=== PATIENT | female | born 1970 ===

== ENCOUNTER 2017-07-03 16:19 | Inpatient (IN) | payer MEDICAID ==
[2017-07-03] MEDS ORDERED: Sodium Chloride 0.9% 1,000 ML IV STA (16:46)
--- NOTE | 2017-07-03 16:50 | C.PDOC ---
History Of Present Illness <Cleve Davis - Last Filed: 07/05/17 15:44> <Jaclyn Martínez - Last Filed: 07/08/17 15:51> 47 y/o F c PMHx kidney stone, s/p whipple p/w R flank pain x 3 weeks associated with urinary pressure. She states [place] the [place] hospitalized for 4 days about 2 weeks ago and was found to have hydronephrosis and was also on antibiotics. She reports fever initially. (Cleve Davis Gerber) <Cleve Davis - Last Filed: 07/05/17 15:44> <Jaclyn Martínez - Last Filed: 07/08/17 15:51> Time Seen by Provider: 07/03/17 16:35 Chief Complaint (Nursing): Female Genitourinary Past Medical History - Medical History PMH: Hypercholesterolemia, Kidney Stones Family History: States: No Known Family Hx - Social History Hx Alcohol Use: No Hx Substance Use: No - Immunization History Hx Tetanus Toxoid Vaccination: Yes Hx Influenza Vaccination: No Hx Pneumococcal Vaccination: No <Cleve Davis - Last Filed: 07/05/17 15:44> Review Of Systems Except As Marked, All Systems Reviewed And Found Negative. Cardiovascular: Negative for: Chest Pain Respiratory: Negative for: Shortness of Breath <Cleve Davis - Last Filed: 07/05/17 15:44> Physical Exam <Cleve Davis - Last Filed: 07/05/17 15:44> <Jaclyn Martínez - Last Filed: 07/08/17 15:51> - Physical Exam Additional Physical Exam Comments: Constitutional: No acute distress. Head: Normocephalic. Atraumatic. Eyes: PERRL. ENT: Moist mucous membranes. Neck: Supple. Cardiovascular: Regular rate. Radial pulses 2+ bilaterally. Chest: No tenderness. Respiratory: Clear to auscultation bilaterally. GI: Soft. Nontender. Nondistended. Old surgical scars. Back: R CVA tenderness. Musculoskeletal: No tenderness or swelling of extremities. Skin: No rash. Neurologic: Alert, no focal deficit. (Cleve Davis) ED Course And Treatment - Laboratory Results Result Diagrams: 07/05/17 06:16 07/05/17 06:16 O2 Sat by Pulse Oximetry: 100 <Cleve Davis - Last Filed: 07/05/17 15:44> - Laboratory Results Result Diagrams: 07/06/17 06:52 07/06/17 06:52 <Jaclyn Martínez - Last Filed: 07/08/17 15:51> Medical Decision Making <Cleve Davis - Last Filed: 07/05/17 15:44> <Jaclyn Martínez - Last Filed: 07/08/17 15:51> Medical Decision Making: Check labs, urine, CT, treat with IVF, zofran, toradol. UA shows UTI. Cipro administered. Otherwise, labs unremarkable. Pending CT. Will sign out case to ER night team at change of shift. (Cleve Davis) Disposition - Disposition Disposition Time: 19:00 <Cleve Davis - Last Filed: 07/05/17 15:44> - Disposition Disposition Time: 19:48 <Jaclyn Martínez - Last Filed: 07/08/17 15:51> - Disposition Disposition: HOSPITALIZED Condition: FAIR - Clinical Impression Clinical Impression: Flank pain, Hydronephrosis, UTI (urinary tract infection) Addendum <Cleve Davis - Last Filed: 07/05/17 15:44> <Jaclyn Martínez - Last Filed: 07/08/17 15:51> Addendum: 07/03/17 19:48 Patient currently resting comfortably after IV pain medications. CT scan shows 10x7mm right sided stone at UVJ (right) with moderate to severe hydronephrosis. Patient has had intermittent right sided pain for > 2 weeks, was diagnosed with kidney stone/UTI (is s/p antibiotics) and told she needed surgery. Patient states she preferred to come back to [place] for treatment. Discussed patient with Dr. Gloria yAala, who would like patient admitted to hospitalist service with him for urology. Name: ANANDA EDMOND Age: 47Years F Date: 07/03/2017 SSN: [id number] : 1970 Study: CT ABDOMEN/PELVIS WO Requesting Physician: Cleve Davis Images: [id number] Addl Studies: Provided Clinical History: R flank pain CONFIDENTIALITY STATEMENT This transmission is confidential and is intended to be a privileged communication. It is intended only for the use of the addressee. Access to this message by anyone else is unauthorized. If you are not the intended recipient, any disclosure, copying, distribution or any action taken, or omitted to be taken in reliance on it is prohibited and may be unlawful. If you received this communication in error, please notify us by telephone, so that return of this document to us can be arranged. Page 1 of 3 EXAM: CT Abdomen and Pelvis Without Intravenous Contrast EXAM DATE/TIME: 07/03/2017 4:46 PM CLINICAL HISTORY: 47 years old, female; Pain; Abdominal pain; Flank; Right; Additional info: R flank pain TECHNIQUE: Axial computed tomography images of the abdomen and pelvis without intravenous contrast. All CT scans at this facility use one or more dose reduction techniques, viz.: automated exposure control; ma/kV adjustment per patient size (including targeted exams where dose is matched to indication; i.e. head); or iterative reconstruction technique. Coronal and sagittal reformatted images were created and reviewed. COMPARISON: No relevant prior studies available. FINDINGS: LIMITATIONS: Exam is limited by a generalized absence of intraabdominal and intrapelvic fat. LOWER THORAX: No infiltrate seen in the lung bases. ABDOMEN: LIVER: Air in the intrahepatic bile ducts. See below. GALLBLADDER AND BILE DUCTS: Air in the biliary tree/pneumobilia. This may be postsurgical in etiology, such as from a previous sphincterotomy. Recommend correlation with surgical history and the clinical presentation. Gallbladder is not seen, and is likely surgically absent. [facility] Final Radiology Report [id number] Name: ANANDA EDMOND Age: 47Years F Date: 07/03/2017 SSN: [id number] : 1970 Study: CT ABDOMEN/PELVIS WO Requesting Physician: Cleve Davis Images: 564 Addl Studies: Provided Clinical History: R flank pain CONFIDENTIALITY STATEMENT This transmission is confidential and is intended to be a privileged communication. It is intended only for the use of the addressee. Access to this message by anyone else is unauthorized. If you are not the intended recipient, any disclosure, copying, distribution or any action taken, or omitted to be taken in reliance on it is prohibited and may be unlawful. If you received this communication in error, please notify us by telephone, so that return of this document to us can be arranged. Page 2 of 3 PANCREAS: Pancreas is atrophic and therefore poorly evaluated the. Subtle fluid density areas seen in the pancreas, which could be due to a dilated pancreatic duct, however, recommend followup nonemergent pancreatic protocol CT or MRI to exclude cystic or other pancreatic masses. SPLEEN: No acute abnormality of the spleen identified. ADRENALS: No acute abnormality of the adrenal glands identified. KIDNEYS AND URETERS: 10 x 7 mm obstructing stone at the right UVJ/ ureterovesicular junction. This is best seen on image 142, and is causing moderate to severe right hydroureteronephrosis. There is also a right renal enlargement and right perinephric stranding. Nonobstructing stones in the lower pole of the right kidney. STOMACH AND BOWEL: Retained stool noted throughout the colon. Bowel is otherwise unremarkable in appearance. No evidence of bowel obstruction. APPENDIX: Normal appendix is probably seen, extending medially from the cecum, image 44/601. No significant pericecal inflammatory changes are noted to suggest appendicitis. Recommend clinical correlation. PELVIS: BLADDER: No acute abnormality of the bladder identified. REPRODUCTIVE: Bilateral tubal ligation clips. No acute abnormality of the uterus identified. No evidence of large adnexal masses. ABDOMEN and PELVIS: INTRAPERITONEAL SPACE: No evidence of free intraperitoneal air or fluid. BONES/JOINTS: No acute fractures or other acute bony abnormality noted. SOFT TISSUES: No acute abnormality of the visualized soft tissues is seen. VASCULATURE: No evidence of abdominal aortic aneurysm. No evidence of periaortic hemorrhage. LYMPH NODES: No evidence of diffuse lymphadenopathy. [facility] Final Radiology Report [id number] Name: ANANDA EDMOND Age: 47Years F Date: 07/03/2017 SSN: [id number] : 1970 Study: CT ABDOMEN/PELVIS WO Requesting Physician: Cleve Davis Images: 564 Addl Studies: Provided Clinical History: R flank pain CONFIDENTIALITY STATEMENT This transmission is confidential and is intended to be a privileged communication. It is intended only for the use of the addressee. Access to this message by anyone else is unauthorized. If you are not the intended recipient, any disclosure, copying, distribution or any action taken, or omitted to be taken in reliance on it is prohibited and may be unlawful. If you received this communication in error, please notify us by telephone, so that return of this document to us can be arranged. Page 3 of 3 IMPRESSION: - Large 10 x 7 mm obstructing stone at the right UVJ/ureterovesicular junction, causing moderate to severe right hydronephrosis. - Otherwise, no evidence of significant acute process. - Fluid density areas in the pancreas, which could be due to a dilated pancreatic duct, however, recommend followup nonemergent pancreatic protocol CT or MRI to exclude cystic or other pancreatic masses. - Pneumobilia, which may be postoperative in etiology. - See above for remaining findings. Thank you for allowing us to participate in the care of your patient. Dictated and Authenticated by: Kylah Nuñez MD 07/03/2017 7:12 PM Eastern Time ([place] & [place]) 07/03/17 20:[address] Wilder who agrees with admission to hospitalist service with Rosa Ayala for urology. (Jaclyn Martínez) Decision To Admit <Cleve Davis - Last Filed: 07/05/17 15:44> - Pt Status Changed To: Hospital Disposition Of: Inpatient - Admit Certification Admit to Inpatient:: After my assessment, the patient will require hospitalization for at least two midnights. This is because of the severity of symptoms shown, intensity of services needed, and/or the medical risk in this patient being treated as an outpatient. - InPatient: Physician Admission Certification: I certify that this patient requires 2 or more midnights of care for the following reason:: see notes - . Bed Request Type: Regular Admitting Physician: Ajay Wilder <Jaclyn Martínez - Last Filed: 07/08/17 15:51> - . Patient Diagnosis: Flank pain, Nephrolithiasis, Hydronephrosis, UTI (urinary tract infection)
[2017-07-03] MEDS ORDERED: Sodium Chloride 0.9% 1,000 ML ONE ×2 (16:57→20:46)
[2017-07-03 17:01] LABS: BASO # 0.1 K/uL (0.0-0.2); BASO % 0.6 % (0.0-2.0); EOS # 0.2 K/uL (0.0-0.7); EOS % 1.7 % (0.0-4.0); HEMATOCRIT 32.1 % (34.0-47.0); LYMPH # 2.1 K/uL (1.0-4.3); LYMPH % 23.1 % (20.0-40.0); MEAN CELL VOLUME 87.6 fL (81.0-99.0); MEAN CORPUSCULAR HEMOGLOBIN 30.8 pg (27.0-31.0); MEAN CORPUSCULAR HGB CONC 35.1 g/dL (33.0-37.0); MONO % 10.6 % (0.0-10.0); RED CELL DISTRIBUTION WIDTH 12.9 % (11.5-14.5); WHITE BLOOD COUNT 9.2 K/uL (4.8-10.8)
[2017-07-03 17:08] LABS: CHLORIDE 98 mmol/L (98-107)
[2017-07-03 17:09] LABS: POTASSIUM 3.8 mmol/L (3.6-5.2); SODIUM 140 mmol/L (132-148)
[2017-07-03 17:11] LABS: GFR AFRICAN-AMERICAN > 60
[2017-07-03 17:12] LABS: ALB/GLOB RATIO 0.8 (1.0-2.1); ALKALINE PHOSPHATASE 82 U/L (38-126); ALT/SGPT 20 U/L (9-52); AST/SGOT 16 U/L (14-36); BILIRUBIN,TOTAL 0.4 mg/dL (0.2-1.3); BLOOD UREA NITROGEN 13 mg/dL (7-17); CALCIUM 9.2 mg/dl (8.6-10.4); CARBON DIOXIDE 28 mmol/L (22-30); GLUCOSE,RANDOM 193 mg/dL (65-105)
[2017-07-03 17:15] LABS: RBC URINE 4 /hpf (0-3); URINE BACTERIA RARE (<OCC); URINE BILIRUBIN NEGATIVE (NEGATIVE); URINE BLOOD NEGATIVE (NEGATIVE); URINE COLOR Yellow (YELLOW); URINE GLUCOSE (UA) NORMAL (Normal); URINE KETONE NEGATIVE (NEGATIVE); URINE LEUKOCYTE ESTERASE 1+ Leu/uL (Negative); URINE PROTEIN NEGATIVE (NEGATIVE); URINE UROBILINOGEN NORMAL mg/dL (0.2-1.0); WBC URINE 14 /hpf (0-5)
[2017-07-03] MEDS ORDERED: Ciprofloxacin 400mg/200ml D5W 400 MG/200 ML BAG IVPB STA (18:40)
[2017-07-03] MEDS ORDERED: Ciprofloxacin 400mg/200ml D5W 400 MG/200 ML BAG IVPB ONE (18:52)
--- NOTE | 2017-07-03 19:13 | CT ---
EXAM: CT Abdomen and Pelvis Without Intravenous Contrast EXAM DATE/TIME: 07/03/2017 4:46 PM CLINICAL HISTORY: 47 years old, female; Pain; Abdominal pain; Flank; Right; Additional info: R flank pain TECHNIQUE: Axial computed tomography images of the abdomen and pelvis without intravenous contrast. All CT scans at this facility use one or more dose reduction techniques, viz.: automated exposure control; ma/kV adjustment per patient size (including targeted exams where dose is matched to indication; i.e. head); or iterative reconstruction technique. Coronal and sagittal reformatted images were created and reviewed. COMPARISON: No relevant prior studies available. FINDINGS: LIMITATIONS: Exam is limited by a generalized absence of intraabdominal and intrapelvic fat. LOWER THORAX: No infiltrate seen in the lung bases. ABDOMEN: LIVER: Air in the intrahepatic bile ducts. See below. GALLBLADDER AND BILE DUCTS: Air in the biliary tree/pneumobilia. This may be postsurgical in etiology, such as from a previous sphincterotomy. Recommend correlation with surgical history and the clinical presentation. Gallbladder is not seen, and is likely surgically absent. PANCREAS: Pancreas is atrophic and therefore poorly evaluated the. Subtle fluid density areas seen in the pancreas, which could be due to a dilated pancreatic duct, however, recommend followup nonemergent pancreatic protocol CT or MRI to exclude cystic or other pancreatic masses. SPLEEN: No acute abnormality of the spleen identified. ADRENALS: No acute abnormality of the adrenal glands identified. KIDNEYS AND URETERS: 10 x 7 mm obstructing stone at the right UVJ/ureterovesicular junction. This is best seen on image 142, and is causing moderate to severe right hydroureteronephrosis. There is also a right renal enlargement and right perinephric stranding. Nonobstructing stones in the lower pole of the right kidney. STOMACH AND BOWEL: Retained stool noted throughout the colon. Bowel is otherwise unremarkable in appearance. No evidence of bowel obstruction. APPENDIX: Normal appendix is probably seen, extending medially from the cecum, image 44/601. No significant pericecal inflammatory changes are noted to suggest appendicitis. Recommend clinical correlation. PELVIS: BLADDER: No acute abnormality of the bladder identified. REPRODUCTIVE: Bilateral tubal ligation clips. No acute abnormality of the uterus identified. No evidence of large adnexal masses. ABDOMEN and PELVIS: INTRAPERITONEAL SPACE: No evidence of free intraperitoneal air or fluid. BONES/JOINTS: No acute fractures or other acute bony abnormality noted. SOFT TISSUES: No acute abnormality of the visualized soft tissues is seen. VASCULATURE: No evidence of abdominal aortic aneurysm. No evidence of periaortic hemorrhage. LYMPH NODES: No evidence of diffuse lymphadenopathy. IMPRESSION: - Large 10 x 7 mm obstructing stone at the right UVJ/ureterovesicular junction, causing moderate to severe right hydronephrosis. - Otherwise, no evidence of significant acute process. - Fluid density areas in the pancreas, which could be due to a dilated pancreatic duct, however, recommend followup nonemergent pancreatic protocol CT or MRI to exclude cystic or other pancreatic masses. - Pneumobilia, which may be postoperative in etiology. - See above for remaining findings.
--- NOTE | 2017-07-03 20:23 | CP.PCM.HP ---
<Betsy Downing - Last Filed: 07/03/17 21:10> History of Present Illness - History of Present Illness History of Present Illness: Medicine Note For Dr. Wilder CC: dysuria, hematuria, abdominal and flank pain HPI: 47F with PMHx of HLD, 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 Patient reports she started to have pain x3 weeks ago. She was [place] her [place] () during that time where she was hospitalized for hydronephrosis. The plan was for her to have the surgery there, but instead the patient wanted to have the surgery in the [place]. She was discharged with antibiotics. Patient reports during the past 3 weeks she has experienced fever, chills, abdominal, suprapubic, R flank pain, dysuria, hematuria, constipation, urinary frequency, and urinary urgency. She did not take anything for the pain, she only took the prescribed antiobiotics she was given for the complete 7 day course. Denied chest pain, SOB , or n/v/d. PMHx: HLD, Whipple PSHx: Whipple Meds: PPI,statin All: NKDA SHx: Denied x3 FHx: Unremarkable PMD: Dr. Pearl Present on Admission - Present on Admission Any Indicators Present on Admission: No Past Patient History - Past Social History Smoking Status: Never Smoked - CARDIAC Hx Hypercholesterolemia: Yes - RENAL Hx Kidney Stones: Yes - GASTROINTESTINAL Other/Comment: CYST IN LIVER - PSYCHIATRIC Hx Substance Use: No - SURGICAL HISTORY Other/Comment: WHIPPLE - ANESTHESIA Hx Anesthesia: Yes Hx Anesthesia Reactions: No Meds Allergies/Adverse Reactions: Allergies Allergy/AdvReac Type Severity Reaction Status Date / Time No Known Allergies Allergy Verified 07/03/17 16:33 Physical Exam - Constitutional Appears: No Acute Distress - Head Exam Head Exam: NORMAL INSPECTION, NORMOCEPHALIC - Eye Exam Eye Exam: EOMI, Normal appearance, PERRL Pupil Exam: NORMAL ACCOMODATION - ENT Exam ENT Exam: Mucous Membranes Moist - Respiratory Exam Respiratory Exam: Clear to Auscultation Bilateral, NORMAL BREATHING PATTERN. absent: Decreased Breath Sounds, Wheezes - Cardiovascular Exam Cardiovascular Exam: REGULAR RHYTHM, RRR, +S1, +S2 - GI/Abdominal Exam GI & Abdominal Exam: Normal Bowel Sounds, Soft, Tenderness. absent: Distended Additional comments: Suprapubic - Rectal Exam Rectal Exam: Deferred - Extremities Exam Extremities exam: Positive for: normal inspection, pedal pulses present. Negative for: pedal edema, tenderness - Back Exam Back exam: CVA tenderness (R) - Neurological Exam Neurological exam: Alert, Oriented x3 - Psychiatric Exam Psychiatric exam: Normal Affect, Normal Mood - Skin Skin Exam: Dry, Intact, Normal Color, Warm Results - Vital Signs Recent Vital Signs: Last Vital Signs Temp 98.6 F 07/03/17 19:34 Pulse 70 07/03/17 19:34 Resp 18 07/03/17 19:34 BP 127/84 07/03/17 19:34 Pulse Ox 98 07/03/17 19:34 - Labs Result Diagrams: 07/03/17 16:58 07/03/17 16:58 Assessment & Plan - Assessment and Plan (Free Text) Plan: Hydronephrosis * Secondary to 10x7mm right sided stone at UVJ * Urology consulted- Dr. Gloria Ayala- Help appreciated * CT abdomen and pelvis: Large 10 x 7 mm obstructing stone at the right UVJ/ ureterovesicular junction, causing moderate to severe right hydronephrosis. Otherwise, no evidence of significant acute process. Fluid density areas in the pancreas, which could be due to a dilated pancreatic duct, however, recommend followup nonemergent pancreatic protocol CT or MRI to exclude cystic or other pancreatic masses. Pneumobilia, which may be postoperative in etiology. * NS 100cc/hr, toradol PRN, zofran PRN * Patient kept NPO in case Dr. Ayala will take this patient to the OR tomorrow. UTI * UA +1 LE * Started on Rocephin 1 gram IVP daily * F/U UC Constipation * Miralax was given Hx of HLD * Crestor 5mg PO QHS * F/U lipid panel Prophylactic Measures * GI PPX: Protonix 40mg PO daily * DVT PPX: SCDs, Heparin [id number] DW Chang Huddleston DO, PGY-1 <Ajay Wilder - Last Filed: 07/04/17 06:37> Results - Vital Signs Recent Vital Signs: Last Vital Signs Temp 97.8 F 07/04/17 00:00 Pulse 62 07/04/17 00:00 Resp 18 07/04/17 01:21 BP 145/81 07/04/17 00:00 Pulse Ox 99 07/04/17 00:00 - Labs Result Diagrams: 07/03/17 16:58 07/03/17 16:58 Labs: Laboratory Results - last 24 hr 07/03/17 21:28 Total T3 1.43 L TSH 3rd Generation 2.14 Assessment & Plan - Date & Time Date: 07/04/17 (I have seen and examined the patient. I agree with the findings and plan of care as documented by Dr. Downing. Patient with hydronephrosis due to obstruction from calculous. Consult to Dr Ayala. Symptomatic treatment. Medically optimize for possible procedure. Cipro for UTI. Urine and blood cultures. Monitor for acute changes.) Time: 06:35 Attending/Attestation - Attestation I have personally seen and examined this patient.: Yes I have fully participated in the care of the patient.: Yes I have reviewed all pertinent clinical information: Yes
[2017-07-03] MEDS: Sodium Chloride 0.9% 1,000 ML IV SCH (20:50)
[2017-07-03] MEDS ORDERED: POLYETHYLENE GLYCOL 3350 17 GM/Dose PACKET PO STA (21:11)
[2017-07-03 22:08] LABS: THYROID STIMULATING HORMONE 2.14 mIU/L (0.46-4.68)
[2017-07-04] MEDS: Sodium Chloride 0.9% 1,000 ML IV SCH ×2 (07:25→18:19)
[2017-07-04 08:42] LABS: CHLORIDE 101 mmol/L (98-107); POTASSIUM 3.6 mmol/L (3.6-5.2); SODIUM 139 mmol/L (132-148)
[2017-07-04 08:44] LABS: ALB/GLOB RATIO 0.8 (1.0-2.1); BILIRUBIN,TOTAL 0.4 mg/dL (0.2-1.3); CARBON DIOXIDE 25 mmol/L (22-30); CHOLESTEROL 170 mg/dL (0-199); GFR AFRICAN-AMERICAN > 60; TOTAL PROTEIN 8.1 g/dL (6.3-8.3)
[2017-07-04 08:45] LABS: ALKALINE PHOSPHATASE 93 U/L (38-126); ALT/SGPT 26 U/L (9-52); AST/SGOT 19 U/L (14-36); BLOOD UREA NITROGEN 14 mg/dL (7-17); CALCIUM 8.9 mg/dl (8.6-10.4); GLUCOSE,RANDOM 157 mg/dL (65-105); PHOSPHOROUS 4.1 mg/dL (2.5-4.5)
[2017-07-04 08:46] LABS: MAGNESIUM 1.8 mg/dL (1.6-2.3)
[2017-07-04 08:51] LABS: BASO # 0.1 K/uL (0.0-0.2); BASO % 0.9 % (0.0-2.0); EOS # 0.2 K/uL (0.0-0.7); EOS % 1.9 % (0.0-4.0); HEMATOCRIT 34.3 % (34.0-47.0); LYMPH # 1.9 K/uL (1.0-4.3); MEAN CELL VOLUME 89.2 fL (81.0-99.0); MEAN CORPUSCULAR HGB CONC 33.7 g/dL (33.0-37.0); MEAN PLATELET VOLUME 8.1 fL (7.2-11.7); MONO # 0.7 K/uL (0.0-0.8); MONO % 9.1 % (0.0-10.0); NRBC % 0.1 % (0.0-2.0); RED CELL DISTRIBUTION WIDTH 13.1 % (11.5-14.5); WHITE BLOOD COUNT 8.1 K/uL (4.8-10.8)
[2017-07-04 08:54] LABS: INR 1.1
[2017-07-04] MEDS ORDERED: POLYETHYLENE GLYCOL 3350 17 GM/Dose PACKET PO ONE (10:00)
[2017-07-04] MEDS: Pantoprazole 40 mg EC Tab PO SCH (10:00)
--- NOTE | 2017-07-04 15:30 | CP.PCM.PN ---
<Warren Wang - Last Filed: 07/04/17 17:07> Objective - Vital Signs/Intake and Output Vital Signs (last 24 hours): Temp Pulse Resp BP Pulse Ox 98.6 F 65 20 118/78 98 07/04/17 08:48 07/04/17 08:48 07/04/17 08:48 07/04/17 08:48 07/04/17 08:48 Intake and Output: 07/04/17 07/04/17 06:59 18:59 Intake Total 1050 Output Total 200 Balance 850 - Medications Medications: Current Medications Acetaminophen (Tylenol 325mg Tab) 650 mg PO Q6 PRN PRN Reason: Pain, Mild (1-3) Heparin Sodium (Porcine) (Heparin) 5,000 units SC Q12 [facility] Last Admin: 07/04/17 10:00 Dose: Not Given Ceftriaxone Sodium 1 gm/ (Sodium Chloride) 100 mls @ 100 mls/hr IVPB DAILY [facility] Last Admin: 07/04/17 11:57 Dose: 100 mls/hr Sodium Chloride (Sodium Chloride 0.9%) 1,000 mls @ 100 mls/hr IV .Q10H [facility] Last Admin: 07/04/17 07:25 Dose: Not Given Ketorolac Tromethamine (Toradol) 30 mg IVP Q6 PRN PRN Reason: Pain, severe (8-10) Ondansetron HCl (Zofran Inj) 4 mg IVP Q6H PRN PRN Reason: Nausea/Vomiting Pantoprazole Sodium (Protonix Ec Tab) 40 mg PO DAILY [facility] Last Admin: 07/04/17 10:00 Dose: Not Given Pneumococcal Polyvalent Vaccine (Pneumovax 23 Vaccine) 0.5 ml IM .ONCE ONE Stop: 07/05/17 10:01 Rosuvastatin Calcium (Crestor) 5 mg PO HS [facility] Last Admin: 07/03/17 22:26 Dose: 5 mg - Labs Labs: 07/04/17 08:20 07/04/17 08:20 PT 12.4 SECONDS (9.7-12.2) H 07/04/17 08:20 INR 1.1 07/04/17 08:20 APTT 31 SECONDS (21-34) 07/04/17 08:20 Attending/Attestation - Attestation I have personally seen and examined this patient.: Yes I have fully participated in the care of the patient.: Yes I have reviewed all pertinent clinical information, including history, physical exam and plan: Yes Notes (Text): 07/04/17 17:03 Patient was seen and examined at bedside Patient complains of right flank pain Patient is started on diet and the plan is for or in the morning <Fransisco Ovalle - Last Filed: 07/04/17 22:19> Subjective - Date & Time of Evaluation Date of Evaluation: 07/04/17 Time of Evaluation: 17:00 - Subjective Subjective: Dr. Wang service: Patient seen and examined in room. Patient coming to the hospital due to a diffaculty urinating and pressure like sensaton when she urinates. She denies fever, chills, nausea, vomiting, diarrhea, shortness of breath or chest pain. Objective - Vital Signs/Intake and Output Vital Signs (last 24 hours): Temp Pulse Resp BP Pulse Ox 98.6 F 65 20 118/78 98 07/04/17 08:48 07/04/17 08:48 07/04/17 08:48 07/04/17 08:48 07/04/17 08:48 Intake and Output: 07/04/17 07/04/17 06:59 18:59 Intake Total 1050 Output Total 200 Balance 850 - Medications Medications: Current Medications Acetaminophen (Tylenol 325mg Tab) 650 mg PO Q6 PRN PRN Reason: Pain, Mild (1-3) Heparin Sodium (Porcine) (Heparin) 5,000 units SC Q12 [facility] Last Admin: 07/04/17 10:00 Dose: Not Given Ceftriaxone Sodium 1 gm/ (Sodium Chloride) 100 mls @ 100 mls/hr IVPB DAILY [facility] Last Admin: 07/04/17 11:57 Dose: 100 mls/hr Sodium Chloride (Sodium Chloride 0.9%) 1,000 mls @ 100 mls/hr IV .Q10H [facility] Last Admin: 07/04/17 07:25 Dose: Not Given Ketorolac Tromethamine (Toradol) 30 mg IVP Q6 PRN PRN Reason: Pain, severe (8-10) Ondansetron HCl (Zofran Inj) 4 mg IVP Q6H PRN PRN Reason: Nausea/Vomiting Pantoprazole Sodium (Protonix Ec Tab) 40 mg PO DAILY [facility] Last Admin: 07/04/17 10:00 Dose: Not Given Pneumococcal Polyvalent Vaccine (Pneumovax 23 Vaccine) 0.5 ml IM .ONCE ONE Stop: 07/05/17 10:01 Rosuvastatin Calcium (Crestor) 5 mg PO HS [facility] Last Admin: 07/03/17 22:26 Dose: 5 mg - Labs Labs: 07/04/17 08:20 07/04/17 08:20 PT 12.4 SECONDS (9.7-12.2) H 07/04/17 08:20 INR 1.1 07/04/17 08:20 APTT 31 SECONDS (21-34) 07/04/17 08:20 - Constitutional Appears: Non-toxic, No Acute Distress - Eye Exam Eye Exam: Normal appearance. absent: Scleral icterus Pupil Exam: NORMAL ACCOMODATION - Neck Exam Neck Exam: Normal Inspection - Respiratory Exam Respiratory Exam: Clear to Ausculation Bilateral. absent: Rhonchi, Wheezes - Cardiovascular Exam Cardiovascular Exam: REGULAR RHYTHM, RRR, +S1, +S2. absent: Gallop, Rubs - GI/Abdominal Exam GI & Abdominal Exam: Distended, Normal Bowel Sounds. absent: Tenderness - Extremities Exam Extremities Exam: Normal Inspection - Neurological Exam Neurological Exam: Alert - Psychiatric Exam Psychiatric exam: Normal Affect, Normal Mood - Skin Skin Exam: Normal Color Assessment and Plan - Assessment and Plan (Free Text) Assessment: Hydronephrosis * 07/04: Patient will go to the OR with Dr. Ayala tomorrow. NPO past midnight * * Secondary to 10x7mm right sided stone at UVJ * Urology consulted- Dr. Gloria Ayala- Help appreciated * CT abdomen and pelvis: Large 10 x 7 mm obstructing stone at the right UVJ/ ureterovesicular junction, causing moderate to severe right hydronephrosis. Otherwise, no evidence of significant acute process. Fluid density areas in the pancreas, which could be due to a dilated pancreatic duct, however, recommend followup nonemergent pancreatic protocol CT or MRI to exclude cystic or other pancreatic masses. Pneumobilia, which may be postoperative in etiology. * NS 100cc/hr, toradol PRN, zofran PRN * Patient kept NPO in case Dr. Ayala will take this patient to the OR tomorrow. UTI * 07/04: Culture is negative, continue Rocephine 1 gram. * UA +1 LE * Started on Rocephin 1 gram IVP daily * F/U UC Constipation * Miralax was given Hx of HLD * 07/04: very low HDL at 24 * Crestor 5mg PO QHS * F/U lipid panel Prophylactic Measures * GI PPX: Protonix 40mg PO daily * DVT PPX: SCDs, Heparin [id number]
--- NOTE | 2017-07-04 17:35 | RAD ---
HISTORY: pre op COMPARISON: None available. TECHNIQUE: Chest, one view. FINDINGS: LUNGS: Numerous coarse calcifications predominantly in the right greater than left upper lobes ; possibly related to prior granulomatous infection. Please note that chest x-ray has limited sensitivity for the detection of pulmonary masses. PLEURA: No significant pleural effusion identified. No definite pneumothorax . CARDIOVASCULAR: Heart size appears within normal limits. OSSEOUS STRUCTURES: Degenerative changes. VISUALIZED UPPER ABDOMEN: Mild elevation of the right hemidiaphragm. OTHER FINDINGS: None. IMPRESSION: Numerous coarse calcifications predominantly in the right greater than left upper lobes ; possibly related to prior granulomatous infection.
[2017-07-05] MEDS: Sodium Chloride 0.9% 1,000 ML IV SCH ×3 (02:30→14:35)
[2017-07-05 06:29] LABS: BASO % 0.5 % (0.0-2.0); EOS # 0.1 K/uL (0.0-0.7); EOS % 1.8 % (0.0-4.0); HEMATOCRIT 32.1 % (34.0-47.0); LYMPH # 1.5 K/uL (1.0-4.3); LYMPH % 18.1 % (20.0-40.0); MEAN CELL VOLUME 88.9 fL (81.0-99.0); MEAN CORPUSCULAR HEMOGLOBIN 30.4 pg (27.0-31.0); MEAN CORPUSCULAR HGB CONC 34.1 g/dL (33.0-37.0); MEAN PLATELET VOLUME 7.4 fL (7.2-11.7); MONO # 0.8 K/uL (0.0-0.8); MONO % 9.1 % (0.0-10.0); RED CELL DISTRIBUTION WIDTH 12.9 % (11.5-14.5); WHITE BLOOD COUNT 8.4 K/uL (4.8-10.8)
[2017-07-05 06:44] LABS: ALB/GLOB RATIO 0.9 (1.0-2.1); ALKALINE PHOSPHATASE 73 U/L (38-126); ALT/SGPT 20 U/L (9-52); AST/SGOT 12 U/L (14-36); BILIRUBIN,TOTAL 0.2 mg/dL (0.2-1.3); BLOOD UREA NITROGEN 10 mg/dL (7-17); CALCIUM 8.5 mg/dl (8.6-10.4); CARBON DIOXIDE 27 mmol/L (22-30); CHLORIDE 101 mmol/L (98-107); GFR AFRICAN-AMERICAN > 60; GLUCOSE,RANDOM 169 mg/dL (65-105); MAGNESIUM 1.9 mg/dL (1.6-2.3); PHOSPHOROUS 3.4 mg/dL (2.5-4.5); POTASSIUM 4.1 mmol/L (3.6-5.2); SODIUM 135 mmol/L (132-148); TOTAL PROTEIN 6.8 g/dL (6.3-8.3)
--- NOTE | 2017-07-05 07:38 | CP.PCM.PN ---
<Anthony Jenkins - Last Filed: 07/05/17 09:24> Subjective - Date & Time of Evaluation Date of Evaluation: 07/05/17 Time of Evaluation: 07:38 - Subjective Subjective: PGY1 Note for Dr. Fitzgerald HPI: Faroese speaking, Translation by medical student Valentin Clemons. Patient seen and examined at bedside. Complaining of pain with urination but denies any blood in urine. Complaining of back pain bilaterally at the level of the kidneys. She is complaining of mild knee pain bilaterally as well. No other complaints at this time. Patient appears comfortable and is sitting up in bed. We discussed that she will be going to surgery today with Dr. Ayala. She agreed and all of her questions were answered. Objective - Vital Signs/Intake and Output Vital Signs (last 24 hours): Temp Pulse Resp BP Pulse Ox 98.4 F 75 20 121/80 99 07/05/17 00:00 07/05/17 00:00 07/05/17 00:00 07/05/17 00:00 07/05/17 00:00 Intake and Output: 07/05/17 07/05/17 06:59 18:59 Intake Total 2019 Balance 2020 - Medications Medications: Current Medications Acetaminophen (Tylenol 325mg Tab) 650 mg PO Q6 PRN PRN Reason: Pain, Mild (1-3) Heparin Sodium (Porcine) (Heparin) 5,000 units SC Q12 [facility] Last Admin: 07/04/17 10:00 Dose: Not Given Ceftriaxone Sodium 1 gm/ (Sodium Chloride) 100 mls @ 100 mls/hr IVPB DAILY [facility] Last Admin: 07/04/17 11:57 Dose: 100 mls/hr Sodium Chloride (Sodium Chloride 0.9%) 1,000 mls @ 100 mls/hr IV .Q10H [facility] Last Admin: 07/05/17 04:35 Dose: 100 mls/hr Ketorolac Tromethamine (Toradol) 30 mg IVP Q6 PRN PRN Reason: Pain, severe (8-10) Ondansetron HCl (Zofran Inj) 4 mg IVP Q6H PRN PRN Reason: Nausea/Vomiting Pantoprazole Sodium (Protonix Ec Tab) 40 mg PO DAILY [facility] Last Admin: 07/04/17 10:00 Dose: Not Given Pneumococcal Polyvalent Vaccine (Pneumovax 23 Vaccine) 0.5 ml IM .ONCE ONE Stop: 07/05/17 10:01 Rosuvastatin Calcium (Crestor) 5 mg PO HS [facility] Last Admin: 07/04/17 21:14 Dose: 5 mg - Labs Labs: 07/05/17 06:16 07/05/17 06:16 PT 12.4 SECONDS (9.7-12.2) H 07/04/17 08:20 INR 1.1 07/04/17 08:20 APTT 31 SECONDS (21-34) 07/04/17 08:20 - Constitutional Appears: Well, Non-toxic, No Acute Distress - Head Exam Head Exam: ATRAUMATIC, NORMAL INSPECTION, NORMOCEPHALIC - Eye Exam Eye Exam: EOMI - ENT Exam ENT Exam: Mucous Membranes Moist - Respiratory Exam Respiratory Exam: Clear to Ausculation Bilateral, NORMAL BREATHING PATTERN. absent: Rales, Rhonchi, Wheezes, Stridor - Cardiovascular Exam Cardiovascular Exam: REGULAR RHYTHM. absent: Bradycardia, Tachycardia, Gallop, Rubs, Murmur - GI/Abdominal Exam GI & Abdominal Exam: Soft, Normal Bowel Sounds. absent: Tenderness, Mass - Extremities Exam Extremities Exam: absent: Calf Tenderness, Pedal Edema, Tenderness - Back Exam Back Exam: CVA tenderness (L), CVA tenderness (R) - Neurological Exam Neurological Exam: Alert, Awake, Oriented x3 - Psychiatric Exam Psychiatric exam: Normal Affect, Normal Mood - Skin Skin Exam: Dry, Intact, Normal Color, Warm Assessment and Plan - Assessment and Plan (Free Text) Assessment: Hydronephrosis * Patient will go to the OR with Dr. Ayala today * Secondary to 10x7mm right sided stone at UVJ * CT: Large 10 x 7 mm obstructing stone @ R. UVJ, causing moderate to severe right hydronephrosis. F/U dilated pancreatic duct with pancreatic CT * Toradol * Zofran UTI * Culture negative - F/U * Rocephine 1 gram * UA +1 LE Constipation * Miralax Hx of HLD * Crestor 5mg PO QHS * Lipid panel * TG - 141 * Total Cholesterol - 170 * LDL - 121 * HDL - 24 Prophylactic Measures * GI PPX: Protonix 40mg PO daily * DVT PPX: SCDs, Heparin [id number] <Jayden Fitzgerald H - Last Filed: 07/05/17 18:15> Objective - Vital Signs/Intake and Output Vital Signs (last 24 hours): Temp Pulse Resp BP Pulse Ox 98.2 F 64 20 133/87 97 07/05/17 16:00 07/05/17 16:00 07/05/17 16:00 07/05/17 16:00 07/05/17 16:00 Intake and Output: 07/05/17 07/05/17 06:59 18:59 Intake Total 2019 999 Balance 2019 1000 - Medications Medications: Current Medications Acetaminophen (Tylenol 325mg Tab) 650 mg PO Q6 PRN PRN Reason: Pain, Mild (1-3) Heparin Sodium (Porcine) (Heparin) 5,000 units SC Q12 [facility] Last Admin: 07/04/17 10:00 Dose: Not Given Ceftriaxone Sodium 1 gm/ (Sodium Chloride) 100 mls @ 100 mls/hr IVPB DAILY [facility] Last Admin: 07/05/17 09:42 Dose: 100 mls/hr Sodium Chloride (Sodium Chloride 0.9%) 1,000 mls @ 100 mls/hr IV .Q10H [facility] Last Admin: 07/05/17 14:35 Dose: 100 mls/hr Gentamicin Sulfate/Sodium Chloride (Gentamicin Iv 80 Mg Premix) 80 mg in 100 mls @ 100 mls/hr IVPB ONCE ONE Stop: 07/05/17 18:59 Ketorolac Tromethamine (Toradol) 30 mg IVP Q6 PRN PRN Reason: Pain, severe (8-10) Ondansetron HCl (Zofran Inj) 4 mg IVP Q6H PRN PRN Reason: Nausea/Vomiting Pantoprazole Sodium (Protonix Ec Tab) 40 mg PO DAILY [facility] Last Admin: 07/05/17 09:43 Dose: Not Given Pneumococcal Polyvalent Vaccine (Pneumovax 23 Vaccine) 0.5 ml IM .ONCE ONE Stop: 07/06/17 10:01 Rosuvastatin Calcium (Crestor) 5 mg PO HS [facility] Last Admin: 07/04/17 21:14 Dose: 5 mg - Labs Labs: 07/05/17 06:16 07/05/17 06:16 PT 12.4 SECONDS (9.7-12.2) H 07/04/17 08:20 INR 1.1 07/04/17 08:20 APTT 31 SECONDS (21-34) 07/04/17 08:20 Attending/Attestation - Attestation I have personally seen and examined this patient.: Yes I have fully participated in the care of the patient.: Yes I have reviewed all pertinent clinical information, including history, physical exam and plan: Yes Notes (Text): 07/05/17 17:58 Medical attending: Patient was seen and examined by me, agree with the above note by medical donation professional. When we saw the patient earlier in the morning she had not yet been done to the OR to have insertion of a right urethral stent from what I understand since then she now has a cystoscopy and stent placement to give relief to the area of the stone and obstruction. Neck some when we saw the patient earlier this morning she said that she did have pain is mostly in the right lower quadrant. She previously had flank pain but this had resolved at that time. She described the pain as a pressure-like sensation that seemed to radiate down to her groin. Thank you very much, Jayden Fitzgerald
[2017-07-05] MEDS: Pantoprazole 40 mg EC Tab PO SCH (09:43)
[2017-07-05] MEDS ORDERED: Pneumococcal 23-Valent Vaccine IM ONE (10:00)
--- NOTE | 2017-07-05 16:53 | PCM.URO ---
Urology Progress Note - Subjective Abdominal Pain: Yes - Objective Lab Studies: Reviewed (see operative note from gu standpoint pt can be followed at out pt pt has a stent and this needs to be followed) Lab Results Last 24 Hours: Laboratory Results - last 24 hr 07/03/17 07/05/17 07/05/17 21:28 06:16 06:16 WBC 8.4 RBC 3.61 L Hgb 10.9 L Hct 32.1 L MCV 88.9 MCH 30.4 MCHC 34.1 RDW 12.9 Plt Count 391 MPV 7.4 Neut % (Auto) 70.5 Lymph % (Auto) 18.1 L [place] % (Auto) 9.1 Eos % (Auto) 1.8 Baso % (Auto) 0.5 Neut # 5.9 Lymph # 1.5 [place] # 0.8 Eos # 0.1 Baso # 0.0 Sodium 135 Potassium 4.1 Chloride 101 Carbon Dioxide 27 Anion Gap 12 BUN 10 Creatinine 0.7 Est GFR ( Amer) > 60 Est GFR (Non-Af Amer) > 60 Random Glucose 169 H Hemoglobin A1c 9.5 H Calcium 8.5 L Phosphorus 3.4 Magnesium 1.9 Total Bilirubin 0.2 AST 12 L D ALT 20 Alkaline Phosphatase 73 Total Protein 6.8 Albumin 3.2 L Globulin 3.6 Albumin/Globulin Ratio 0.9 L Urine HCG, Qual 07/05/17 09:11 WBC RBC Hgb Hct MCV MCH MCHC RDW Plt Count MPV Neut % (Auto) Lymph % (Auto) [place] % (Auto) Eos % (Auto) Baso % (Auto) Neut # Lymph # [place] # Eos # Baso # Sodium Potassium Chloride Carbon Dioxide Anion Gap BUN Creatinine Est GFR ( Amer) Est GFR (Non-Af Amer) Random Glucose Hemoglobin A1c Calcium Phosphorus Magnesium Total Bilirubin AST ALT Alkaline Phosphatase Total Protein Albumin Globulin Albumin/Globulin Ratio Urine HCG, Qual Negative Intake & Output: Intake & Output 07/04/17 07/05/17 07/05/17 18:59 06:59 18:59 Intake Total 1050 2020 1000 Output Total 200 Balance 850 2020 1000 Intake: Intake, IV Amount 900 1600 800 Left Forearm 900 1600 800 Oral 150 420 200 Output: Urine 200 Urine, Voided 200 Other: # Voids Urine, Voided 1 2 3 # Bowel Movements 1 Vital Signs: Vital Signs - 24 hr 07/05/17 07/05/17 07/05/17 00:00 08:16 15:44 Temperature 98.4 F 98.1 F Pulse Rate 75 67 Respiratory 20 20 Rate Blood Pressure 121/80 118/76 O2 Sat by Pulse 99 98 100 Oximetry 07/05/17 16:00 Temperature 98.2 F Pulse Rate 64 Respiratory 20 Rate Blood Pressure 133/87 O2 Sat by Pulse 97 Oximetry
[2017-07-05] MEDS ORDERED: Lidocaine 2% Jelly (Uro-Jet) ONE (17:20)
[2017-07-05] MEDS ORDERED: Iohexol 240 (50 ml) ONE (17:20)
[2017-07-05] MEDS ORDERED: Lactated Ringer's 1,000 ML IV ONE ×2 (17:30→18:15)
[2017-07-05] MEDS ORDERED: Propofol 10 mg/ml Inj (20 ML) ONE (17:40)
[2017-07-05] MEDS ORDERED: Midazolam 2 MG/2 ML VIAL ONE (17:40)
[2017-07-05] MEDS: cefTRIAXone IV 1 gm in Dextros 50 ML IVPB ONE ×2 (17:40→17:59)
[2017-07-05] MEDS ORDERED: Gentamicin 80 mg in 0.9% NS 80 MG/100 ML BAG IVPB ONE (18:00)
[2017-07-06 00:32] VITALS: RESP 20
[2017-07-06] MEDS: Sodium Chloride 0.9% 1,000 ML IV SCH ×2 (06:43→09:42)
[2017-07-06 07:33] LABS: CHLORIDE 103 mmol/L (98-107); SODIUM 137 mmol/L (132-148)
[2017-07-06 07:34] VITALS: BP 112/75; PULSE 63; TEMP 98.2; O2SAT 96
[2017-07-06 07:34] LABS: POTASSIUM 4.1 mmol/L (3.6-5.2)
[2017-07-06 07:35] LABS: GFR AFRICAN-AMERICAN > 60
[2017-07-06 07:36] LABS: ALB/GLOB RATIO 0.8 (1.0-2.1); ALKALINE PHOSPHATASE 68 U/L (38-126); ALT/SGPT 21 U/L (9-52); AST/SGOT 16 U/L (14-36); BILIRUBIN,TOTAL 0.4 mg/dL (0.2-1.3); BLOOD UREA NITROGEN 8 mg/dL (7-17); CALCIUM 8.3 mg/dl (8.6-10.4); CARBON DIOXIDE 25 mmol/L (22-30); GLUCOSE,RANDOM 134 mg/dL (65-105); PHOSPHOROUS 3.8 mg/dL (2.5-4.5); TOTAL PROTEIN 6.9 g/dL (6.3-8.3)
[2017-07-06 07:37] LABS: MAGNESIUM 1.8 mg/dL (1.6-2.3)
[2017-07-06 07:42] LABS: BASO # 0.1 K/uL (0.0-0.2); EOS # 0.2 K/uL (0.0-0.7); EOS % 2.6 % (0.0-4.0); HEMATOCRIT 32.4 % (34.0-47.0); LYMPH # 1.7 K/uL (1.0-4.3); LYMPH % 23.4 % (20.0-40.0); MEAN CORPUSCULAR HEMOGLOBIN 29.7 pg (27.0-31.0); MEAN CORPUSCULAR HGB CONC 33.3 g/dL (33.0-37.0); MEAN PLATELET VOLUME 7.9 fL (7.2-11.7); MONO # 0.7 K/uL (0.0-0.8); MONO % 9.2 % (0.0-10.0); NRBC % 0.1 % (0.0-2.0); WHITE BLOOD COUNT 7.2 K/uL (4.8-10.8)
[2017-07-06] MEDS: Pantoprazole 40 mg EC Tab PO SCH (09:44)
[2017-07-06] MEDS ORDERED: Pneumococcal 23-Valent Vaccine IM ONE (10:00)
--- NOTE | 2017-07-06 13:28 | CP.PCM.DIS ---
<Anthony Jenkins - Last Filed: 07/06/17 19:38> Provider - Provider Date of Admission: 07/03/17 20:00 Attending physician: Jayden Fitzgerald MD Primary care physician: None Consults: Rupa Ayala Time Spent in preparation of Discharge (in minutes): 60 Diagnosis - Discharge Diagnosis (1) Nephrolithiasis Status: Acute Priority: High Hospital Course - Lab Results Lab Results: Micro Results 07/05/17 Unknown Urine,Catheterized Urine Culture - Final No Growth (<1,000 CFU/ML) Most Recent Lab Values WBC 7.2 K/uL (4.8-10.8) 07/06/17 06:52 RBC 3.65 Mil/uL (3.80-5.20) L 07/06/17 06:52 Hgb 10.8 g/dL (11.0-16.0) L 07/06/17 06:52 Hct 32.4 % (34.0-47.0) L 07/06/17 06:52 MCV 89.0 fL (81.0-99.0) 07/06/17 06:52 MCH 29.7 pg (27.0-31.0) 07/06/17 06:52 MCHC 33.3 g/dL (33.0-37.0) 07/06/17 06:52 RDW 13.0 % (11.5-14.5) 07/06/17 06:52 Plt Count 385 K/uL (130-400) 07/06/17 06:52 MPV 7.9 fL (7.2-11.7) 07/06/17 06:52 Neut % (Auto) 63.8 % (50.0-75.0) 07/06/17 06:52 Lymph % (Auto) 23.4 % (20.0-40.0) 07/06/17 06:52 [place] % (Auto) 9.2 % (0.0-10.0) 07/06/17 06:52 Eos % (Auto) 2.6 % (0.0-4.0) 07/06/17 06:52 Baso % (Auto) 1.0 % (0.0-2.0) 07/06/17 06:52 Neut # 4.6 K/uL (1.8-7.0) 07/06/17 06:52 Lymph # 1.7 K/uL (1.0-4.3) 07/06/17 06:52 [place] # 0.7 K/uL (0.0-0.8) 07/06/17 06:52 Eos # 0.2 K/uL (0.0-0.7) 07/06/17 06:52 Baso # 0.1 K/uL (0.0-0.2) 07/06/17 06:52 PT 12.4 SECONDS (9.7-12.2) H 07/04/17 08:20 INR 1.1 07/04/17 08:20 APTT 31 SECONDS (21-34) 07/04/17 08:20 Sodium 137 mmol/L (132-148) 07/06/17 06:52 Potassium 4.1 mmol/L (3.6-5.2) 07/06/17 06:52 Chloride 103 mmol/L (98-107) 07/06/17 06:52 Carbon Dioxide 25 mmol/L (22-30) 07/06/17 06:52 Anion Gap 13 (10-20) 07/06/17 06:52 BUN 8 mg/dL (7-17) 07/06/17 06:52 Creatinine 0.8 MG/DL (0.7-1.2) 07/06/17 06:52 Est GFR ( Amer) > 60 07/06/17 06:52 Est GFR (Non-Af Amer) > 60 07/06/17 06:52 Random Glucose 134 mg/dL (65-105) H 07/06/17 06:52 Hemoglobin A1c 9.5 % (4.2-6.5) H 07/03/17 21:28 Calcium 8.3 mg/dl (8.6-10.4) L 07/06/17 06:52 Phosphorus 3.8 mg/dL (2.5-4.5) 07/06/17 06:52 Magnesium 1.8 mg/dL (1.6-2.3) 07/06/17 06:52 Total Bilirubin 0.4 mg/dL (0.2-1.3) 07/06/17 06:52 AST 16 U/L (14-36) 07/06/17 06:52 ALT 21 U/L (9-52) 07/06/17 06:52 Alkaline Phosphatase 68 U/L (38-126) 07/06/17 06:52 Total Protein 6.9 g/dL (6.3-8.3) 07/06/17 06:52 Albumin 3.0 g/dL (3.5-5.0) L 07/06/17 06:52 Globulin 3.9 gm/dL (2.2-3.9) 07/06/17 06:52 Albumin/Globulin Ratio 0.8 (1.0-2.1) L 07/06/17 06:52 Triglycerides 141 mg/dL (0-149) 07/04/17 08:20 Cholesterol 170 mg/dL (0-199) 07/04/17 08:20 LDL Cholesterol Direct 121 mg/dL (0-129) 07/04/17 08:20 HDL Cholesterol 24 mg/dL (30-70) L 07/04/17 08:20 Total T3 1.43 nmol/L (1.49-2.60) L 07/03/17 21:28 TSH 3rd Generation 2.14 mIU/L (0.46-4.68) 07/03/17 21:28 Urine Color Yellow (YELLOW) 07/03/17 17:03 Urine Clarity Clear (Clear) 07/03/17 17:03 Urine pH 5.0 (5.0-8.0) 07/03/17 17:03 Ur Specific [place] 1.018 (1.003-1.030) 07/03/17 17:03 Urine Protein Negative mg/dL (NEGATIVE) 07/03/17 17:03 Urine Glucose (UA) Normal mg/dL (Normal) 07/03/17 17:03 Urine Ketones Negative mg/dL (NEGATIVE) 07/03/17 17:03 Urine Blood Negative (NEGATIVE) 07/03/17 17:03 Urine Nitrate Negative (NEGATIVE) 07/03/17 17:03 Urine Bilirubin Negative (NEGATIVE) 07/03/17 17:03 Urine Urobilinogen Normal mg/dL (0.2-1.0) 07/03/17 17:03 Ur Leukocyte Esterase 1+ Wendi/uL (Negative) H 07/03/17 17:03 Urine WBC (Auto) 14 /hpf (0-5) H 07/03/17 17:03 Urine RBC (Auto) 4 /hpf (0-3) H 07/03/17 17:03 Ur Squamous Epith Cells 4 /hpf (0-5) 07/03/17 17:03 Urine Bacteria Rare (<OCC) 07/03/17 17:03 Urine HCG, Qual Negative (NEGATIVE) 07/05/17 09:11 - Hospital Course Hospital Course: 47F with PMHx of HLD, 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 Patient reports she started to have pain x3 weeks ago. She was [place] her [place] during that time where she was hospitalized for hydronephrosis. The plan was for her to have the surgery there, but instead the patient wanted to have the surgery in the [place]. She was discharged with antibiotics. Patient reports during the past 3 weeks she has experienced fever, chills, abdominal, suprapubic, R flank pain, dysuria, hematuria, constipation, urinary frequency, and urinary urgency. She did not take anything for the pain, she only took the prescribed antibiotics she was given for the complete 7 day course. Denied chest pain, SOB, or n/v/d. Patient was seen by Rupa Ayala (urology) who took her for a cystoscopy where he found multiple stones in the kidney and ureter. He placed a stent in the R. ureter and perscribed her tylenol and ciprofloxacin. She was stable after her procedure and was advised by both Dr. Ayala and Dr. Jenkins to follow up in his office on 07/06/17, the day of her discharge, between the hours of 5pm-7pm. She was discharged in a stable condition - Date & Time of H&P Date of H&P: 07/03/17 Time of H&P: 20:22 Discharge Exam - Head Exam Head Exam: ATRAUMATIC, NORMAL INSPECTION, NORMOCEPHALIC - Eye Exam Eye Exam: EOMI - ENT Exam ENT Exam: Mucous Membranes Moist - Respiratory Exam Respiratory Exam: NORMAL BREATHING PATTERN. absent: Wheezes, Respiratory Distress, Stridor - Cardiovascular Exam Cardiovascular Exam: REGULAR RHYTHM, RRR, +S1, +S2. absent: Gallop, JVD - GI/Abdominal Exam GI & Abdominal Exam: Normal Bowel Sounds, Soft, Tenderness (mild rightsided tenderness and suprapubic tenderness). absent: Distended, Firm - Back Exam Back exam: absent: CVA tenderness (L), CVA tenderness (R) - Neurological Exam Neurological exam: Alert, Oriented x3 - Psychiatric Exam Psychiatric exam: Normal Affect, Normal Mood - Skin Skin Exam: Dry, Intact, Normal Color, Warm Discharge Plan - Follow Up Plan Condition: FAIR Disposition: HOME/ ROUTINE Instructions: Ciprofloxacin (By mouth), Acetaminophen/Codeine (By mouth), Acute Abdominal Pain (DC), Acute Abdominal Pain (GEN) Additional Instructions: From a urology standpoint, patient is stable and clear for discharge. Please follow up in Dr. Rupa Wilcox office TODAY between 5pm and 7pm. I have attached the office information and phone number. From a Medical standpoint, Patient is clear and stable for discharge. Please return to the ER if symptoms return. Prescription instructions will be provided at discharge. Referrals: Pancho Ayala MD [Staff Provider] - <Jayden Fitzgerald - Last Filed: 07/07/17 07:46> Provider - Provider Date of Admission: 07/03/17 20:00 Attending physician: Ajay Wilder MD Hospital Course - Lab Results Lab Results: Micro Results 07/05/17 Unknown Urine,Catheterized Urine Culture - Final No Growth (<1,000 CFU/ML) Most Recent Lab Values WBC 7.2 K/uL (4.8-10.8) 07/06/17 06:52 RBC 3.65 Mil/uL (3.80-5.20) L 07/06/17 06:52 Hgb 10.8 g/dL (11.0-16.0) L 07/06/17 06:52 Hct 32.4 % (34.0-47.0) L 07/06/17 06:52 MCV 89.0 fL (81.0-99.0) 07/06/17 06:52 MCH 29.7 pg (27.0-31.0) 07/06/17 06:52 MCHC 33.3 g/dL (33.0-37.0) 07/06/17 06:52 RDW 13.0 % (11.5-14.5) 07/06/17 06:52 Plt Count 385 K/uL (130-400) 07/06/17 06:52 MPV 7.9 fL (7.2-11.7) 07/06/17 06:52 Neut % (Auto) 63.8 % (50.0-75.0) 07/06/17 06:52 Lymph % (Auto) 23.4 % (20.0-40.0) 07/06/17 06:52 [place] % (Auto) 9.2 % (0.0-10.0) 07/06/17 06:52 Eos % (Auto) 2.6 % (0.0-4.0) 07/06/17 06:52 Baso % (Auto) 1.0 % (0.0-2.0) 07/06/17 06:52 Neut # 4.6 K/uL (1.8-7.0) 07/06/17 06:52 Lymph # 1.7 K/uL (1.0-4.3) 07/06/17 06:52 [place] # 0.7 K/uL (0.0-0.8) 07/06/17 06:52 Eos # 0.2 K/uL (0.0-0.7) 07/06/17 06:52 Baso # 0.1 K/uL (0.0-0.2) 07/06/17 06:52 PT 12.4 SECONDS (9.7-12.2) H 07/04/17 08:20 INR 1.1 07/04/17 08:20 APTT 31 SECONDS (21-34) 07/04/17 08:20 Sodium 137 mmol/L (132-148) 07/06/17 06:52 Potassium 4.1 mmol/L (3.6-5.2) 07/06/17 06:52 Chloride 103 mmol/L (98-107) 07/06/17 06:52 Carbon Dioxide 25 mmol/L (22-30) 07/06/17 06:52 Anion Gap 13 (10-20) 07/06/17 06:52 BUN 8 mg/dL (7-17) 07/06/17 06:52 Creatinine 0.8 MG/DL (0.7-1.2) 07/06/17 06:52 Est GFR ( Amer) > 60 07/06/17 06:52 Est GFR (Non-Af Amer) > 60 07/06/17 06:52 Random Glucose 134 mg/dL (65-105) H 07/06/17 06:52 Hemoglobin A1c 9.5 % (4.2-6.5) H 07/03/17 21:28 Calcium 8.3 mg/dl (8.6-10.4) L 07/06/17 06:52 Phosphorus 3.8 mg/dL (2.5-4.5) 07/06/17 06:52 Magnesium 1.8 mg/dL (1.6-2.3) 07/06/17 06:52 Total Bilirubin 0.4 mg/dL (0.2-1.3) 07/06/17 06:52 AST 16 U/L (14-36) 07/06/17 06:52 ALT 21 U/L (9-52) 07/06/17 06:52 Alkaline Phosphatase 68 U/L (38-126) 07/06/17 06:52 Total Protein 6.9 g/dL (6.3-8.3) 07/06/17 06:52 Albumin 3.0 g/dL (3.5-5.0) L 07/06/17 06:52 Globulin 3.9 gm/dL (2.2-3.9) 07/06/17 06:52 Albumin/Globulin Ratio 0.8 (1.0-2.1) L 07/06/17 06:52 Triglycerides 141 mg/dL (0-149) 07/04/17 08:20 Cholesterol 170 mg/dL (0-199) 07/04/17 08:20 LDL Cholesterol Direct 121 mg/dL (0-129) 07/04/17 08:20 HDL Cholesterol 24 mg/dL (30-70) L 07/04/17 08:20 Total T3 1.43 nmol/L (1.49-2.60) L 07/03/17 21:28 TSH 3rd Generation 2.14 mIU/L (0.46-4.68) 07/03/17 21:28 Urine Color Yellow (YELLOW) 07/03/17 17:03 Urine Clarity Clear (Clear) 07/03/17 17:03 Urine pH 5.0 (5.0-8.0) 07/03/17 17:03 Ur Specific [place] 1.018 (1.003-1.030) 07/03/17 17:03 Urine Protein Negative mg/dL (NEGATIVE) 07/03/17 17:03 Urine Glucose (UA) Normal mg/dL (Normal) 07/03/17 17:03 Urine Ketones Negative mg/dL (NEGATIVE) 07/03/17 17:03 Urine Blood Negative (NEGATIVE) 07/03/17 17:03 Urine Nitrate Negative (NEGATIVE) 07/03/17 17:03 Urine Bilirubin Negative (NEGATIVE) 07/03/17 17:03 Urine Urobilinogen Normal mg/dL (0.2-1.0) 07/03/17 17:03 Ur Leukocyte Esterase 1+ Wendi/uL (Negative) H 07/03/17 17:03 Urine WBC (Auto) 14 /hpf (0-5) H 07/03/17 17:03 Urine RBC (Auto) 4 /hpf (0-3) H 07/03/17 17:03 Ur Squamous Epith Cells 4 /hpf (0-5) 07/03/17 17:03 Urine Bacteria Rare (<OCC) 07/03/17 17:03 Urine HCG, Qual Negative (NEGATIVE) 07/05/17 09:11 Attending/Attestation - Attestation I have personally seen and examined this patient.: Yes I have fully participated in the care of the patient.: Yes I have reviewed all pertinent clinical information, including history, physical exam and plan: Yes Notes (Text): 07/07/17 07:40 Medical Attending: Patient was seen and examined by me. Agree with the above note by the resident. The patient reported feeling well. She did not have any acute concerns or events following procedure. Patient is aware she will need to follow up with urology for removal of the stent in the future. thank you Jayden Fitzgerald
--- NOTE | 2017-07-06 13:40 | RAD ---
HISTORY: RT STENT INSERT COMPARISON: Abdomen and pelvis CT without contrast 07/03/2017 FINDINGS: BOWEL: Preliminary and post stent abdomen KUB radiographs of been submitted. Bowel gas pattern appears within normal limits with limited retained tone about the left hemicolon. Note is made of at least 2 calculi identified overlying the lower pole right renal silhouette and 2 additional larger calculi identified in the right hemipelvis inferiorly including a previously described obstructing right ureteral calculus measuring at least 10 mm. Final image demonstrates placement of a double-J right ureteral stent abutting the to distal radiodensities. BONES: Limited degenerative joint changes seen the bilateral hip and sacroiliac joints. OTHER FINDINGS: None. IMPRESSION: Status post right double J ureteral stent deployment as discussed above.
--- NOTE | 2017-07-06 13:44 | RAD ---
PROCEDURE: Intraoperative fluoroscopy HISTORY: RT STENT INSERT COMPARISON: Abdomen radiographs 07/05/2017 TECHNIQUE: Intraoperative fluoroscopy was provided to the referring physician to assist in cystoscopy and placement double-J right ureteral stent. FINDINGS: Images submitted demonstrate a cystoscope in urinary bladder with successful cannulation of the right ureter with right ureterogram performed and wire extended throughout the full apparentl length of the right ureter. Please see op report for further detail. IMPRESSION: Intraoperative fluoroscopy was provided for right double-J ureteral stent placement. Please see operative report for further detail. 0.207 mGy with the total dose for the exam, 16.3 seconds.
--- NOTE | 2017-07-22 18:46 | CARD ---
APPROVED REPORT EKG Measurement Heart [id number] <Conclusion> Normal sinus rhythm Low voltage QRS Borderline ECG
--- NOTE | 2017-07-26 18:33 | OP ---
PROCEDURE DATE: 07/05/2017 UROLOGY OPERATIVE REPORT See the history and physical and consultations, etc., for further details. PREOPERATIVE DIAGNOSES: She has a 10-mm distal ureteral stone with massive hydronephrosis. She has bilateral stones with hematuria and severe flank pain. POSTOPERATIVE DIAGNOSES: She has a 10-mm distal ureteral stone with massive hydronephrosis. She has bilateral stones with hematuria and severe flank pain. PROCEDURES: Cystoscopy, right retrograde pyelogram, insertion of right double-J stent. SURGEON: Farhad Ayala MD ESTIMATED BLOOD LOSS: Less than 10 mL. INDICATIONS: Again, see history and physical for further details. Very pleasant lady with a gigantic distal ureteral stone. She has an interesting medical history with a Whipple 20 years plus. There is some kind of benign disease, the patient is not sure of all the details. FINDINGS: The urology operative findings today, she has normal bladder mucosa. She has a massive gigantic stone in her distal ureter on the right side. Bilateral stone disease. At the termination of the procedure has right double-J stent in place. There were no complications. There are no bladder masses. DESCRIPTION OF PROCEDURE: After obtaining informed consent, the patient was placed on the table, routine monitors were placed, time-out was called to confirm the patient. Cystoscope via urethra, the ureteral orifice identified. Retrograde pyelogram performed. A wire was passed up to the kidney with difficultly. We were able to get it in, but it was somewhat really impacted distal ureter. The plan for today was just to get a stent in with the plan actually subsequently ureteroscopy, which we will discuss with the patient. After some manipulation, after performing retrograde pyelogram, we were able to negotiate a wire past the stent with some difficulty, but without any perforation. Once we did this, we were able to insert a double-J stent. The patient tolerated the procedure well without complications. The bladder was emptied. Exam under anesthesia revealed normal external genitalia, no pelvic or rectal masses. The patient tolerated without complications. See addendum at the end. ADDENDUM: The plan will be, once the patient is stabilized, we will bring her out for either shockwave lithotripsy or ureteroscopy laser lithotripsy. We will discuss all the options, risks and benefits with the patient at length. Farhad Ayala MD [facility] # [id number]
== END 2017-07-06 15:21 | disposition home or self-care (01) | DRG 324 ==
LOC: C.ER 16:19 → C.9E 20:00 → C.3T 21:15
PROVIDERS: ADMIT Family Medicine; ATTEND Family Medicine
PROC: BT1D1ZZ Fluoroscopy of Right Kidney, Ureter and Bladder using Low Osmolar Contrast (ICD-10-PCS; 2017-07-05)
PROC: 0T768DZ Dilation of Right Ureter with Intraluminal Device, Via Natural or Artificial Opening Endoscopic (ICD-10-PCS; principal; 2017-07-05 17:50)
DX: N13.2 Hydronephrosis with renal and ureteral calculous obstruction (principal); N39.0 Urinary tract infection, site not specified; K59.00 Constipation, unspecified; E78.00 Pure hypercholesterolemia, unspecified; Z87.442 Personal history of urinary calculi